=== PATIENT | female | born 1970 | race Caucasian/White ===

== ENCOUNTER 2017-03-13 10:00 | Outpatient (RCR) | payer OTHER, SELFPAY | END 2017-03-15 23:59 | LOC: NS 10:00 | PROVIDERS: Family Provider Family Medicine; PCP Family Medicine; Visit Provider Obstetrics & Gynecology | DX: Z68.29 Body mass index [BMI] 29.0-29.9, adult (principal); Z71.3 Dietary counseling and surveillance | CPT/HCPCS: 97803 ==

== ENCOUNTER → 2017-03-20 07:05 | Outpatient (CLI) | payer OTHER, SELFPAY ==
[2017-03-20 08:32] LABS: Estradiol 108.6 pg/mL; Free T3 3.1 pg/mL (2.18-3.98); T4 Free Direct 0.92 ng/dL (0.76-1.46); Thyroid Stim Hormone (TSH) 1.89 uIU/mL (0.358-3.74)
[2017-03-21 08:31] LABS: DHEA Sulfate 113.9 ug/dL (41.2-243.7)
== END ==
PROVIDERS: Family Provider Family Medicine; PCP Family Medicine; Visit Provider Specialist
DX: E03.8 Other specified hypothyroidism (principal); N95.1 Menopausal and female climacteric states; R53.81 Other malaise
CPT/HCPCS: 36415; 82627; 82670; 84144; 84403; 84439; 84443; 84481; 82626

== ENCOUNTER 2017-03-28 10:34 | Outpatient (RCR) | payer OTHER, SELFPAY | END 2017-04-12 23:59 | LOC: NS 10:34 | PROVIDERS: Family Provider Family Medicine; PCP Family Medicine; Visit Provider Obstetrics & Gynecology | DX: Z68.29 Body mass index [BMI] 29.0-29.9, adult (principal); Z71.3 Dietary counseling and surveillance | CPT/HCPCS: 97803 ==

== ENCOUNTER → 2017-04-21 15:58 | Outpatient (CLI) | payer OTHER, SELFPAY ==
[2017-04-21 17:05] LABS: Estradiol 16.4 pg/mL
== END ==
PROVIDERS: Family Provider Family Medicine; PCP Family Medicine; Visit Provider Specialist
DX: N95.8 Other specified menopausal and perimenopausal disorders (principal)
CPT/HCPCS: 36415; 82670; 84144; 84403

== ENCOUNTER → 2017-05-05 09:20 | Outpatient (CLI) | payer OTHER, SELFPAY ==
[2017-05-10 11:30] LABS: HPV APTIMA, High Risk Negative (Negative)
== END ==
PROVIDERS: Family Provider Family Medicine; PCP Family Medicine; Visit Provider Nurse Practitioner Women's Health
DX: Z12.4 Encounter for screening for malignant neoplasm of cervix (principal)
CPT/HCPCS: 88175; G0145

== ENCOUNTER → 2017-05-10 13:21 | Outpatient (CLI) | payer OTHER, SELFPAY ==
--- NOTE | 2017-05-10 13:23 | US_ITS ---
STUDY: ULTRASOUND TRANSVAGINAL CLINICAL: Female, 46 years old. MID PELVIC PAIN X 3 WEEKS INTERMITTENT SPOTTING AFTER NOT HAVING A PERIODS FOR 8 YEARS ENDO OBLATION 2009 TECHNIQUE: Transvaginal COMPARISON: None. FINDINGS: Normal uterine size measuring 8.7x5.5x4.9 cm in maximal craniocaudal dimension. There are no myometrial masses. Normal endometrial thickness measuring 7 mm. The endometrium is fluid-filled. There is an endometrial mass. Cystic structure visualized in the uterine fundus measuring 11 x 10 mm. 2 uterine fibroids visualized measuring 14 x 17 x 15 mm and 12 x 10 x 12 mm. There is an echogenic mass within the endometrium measuring 15 mm Normal uterine cervix. Normal right ovary, measuring 1.9X 2X 1.9 cm. There are multiple follicles without a dominant cyst. Normal left ovary, measuring 2.9X 3.9X 2.4 cm. There are multiple follicles with a dominant follicle that is 22 x 24mm. There is no free fluid in the pelvis. Polycystic ovary disease: No. US/Transvaginal Non- IMPRESSION: 15 mm polyp in the endometrium. Gynecologic evaluation is suggested. Fibroid uterus. Electronically Signed: Jose Burton MD at 17:28 EDT , Service support ,
--- NOTE | 2017-05-10 13:23 | US_ITS ---
STUDY: ULTRASOUND TRANSVAGINAL CLINICAL: Female, 46 years old. MID PELVIC PAIN X 3 WEEKS INTERMITTENT SPOTTING AFTER NOT HAVING A PERIODS FOR 8 YEARS ENDO OBLATION 2009 TECHNIQUE: Transvaginal COMPARISON: None. FINDINGS: Normal uterine size measuring 8.7x5.5x4.9 cm in maximal craniocaudal dimension. There are no myometrial masses. Normal endometrial thickness measuring 7 mm. The endometrium is fluid-filled. There is an endometrial mass. Cystic structure visualized in the uterine fundus measuring 11 x 10 mm. 2 uterine fibroids visualized measuring 14 x 17 x 15 mm and 12 x 10 x 12 mm. There is an echogenic mass within the endometrium measuring 15 mm Normal uterine cervix. Normal right ovary, measuring 1.9X 2X 1.9 cm. There are multiple follicles without a dominant cyst. Normal left ovary, measuring 2.9X 3.9X 2.4 cm. There are multiple follicles with a dominant follicle that is 22 x 24mm. There is no free fluid in the pelvis. Polycystic ovary disease: No. US/Pelvic (Non ) IMPRESSION: 15 mm polyp in the endometrium. Gynecologic evaluation is suggested. Fibroid uterus. Electronically Signed: Jose Burton MD at 17:28 EDT , Service support ,
== END ==
PROVIDERS: Family Provider Family Medicine; PCP Family Medicine; Visit Provider Nurse Practitioner Women's Health
DX: R10.2 Pelvic and perineal pain (principal)
CPT/HCPCS: 76830; 76856; 93976

== ENCOUNTER 2017-05-16 15:29 | Outpatient (RCR) | payer OTHER, SELFPAY | END 2017-05-16 15:30 | LOC: NS 15:29 | PROVIDERS: Family Provider Family Medicine; PCP Family Medicine; Visit Provider Obstetrics & Gynecology | DX: Z68.29 Body mass index [BMI] 29.0-29.9, adult (principal); Z71.3 Dietary counseling and surveillance | CPT/HCPCS: 97803 ==

== ENCOUNTER → 2017-05-30 07:08 | Outpatient (CLI) | payer OTHER, SELFPAY ==
--- NOTE | 2017-05-30 07:10 | BI_ITS ---
MAMMOGRAPHY - BILATERAL SCREENING REASON FOR EXAM: Female, 46 years old. Routine annual screening examination. PERTINENT HISTORY: Non-contributory. Bilateral breast implants. TECHNIQUE: Digital bilateral breast keon (3D mammographic acquisition) in the CC and MLO projections. 2-D mediolateral oblique (MLO) and craniocaudad (CC) views of both breasts were obtained. CAD: Full Field Digital Mammography with Computer Added Detection was performed. COMPARISON: Comparison is made with prior study dated May 19, 2016 and November 01, 2013. FINDINGS: Breast Composition: There are scattered areas of fibroglandular density. There are no dominant masses or suspicious calcifications. Stable appearance of the bilateral breast implants. No other significant abnormalities are identified. There has been no significant change since the prior study. BI/SCREENING MAMM (CAD), BILAT IMPRESSION: Stable bilateral screening mammogram. Yearly follow-up mammogram recommended. (A) ASSESSMENT CATEGORY: BIRADS Category 2: Benign. A letter regarding these results will be sent to the patient by the facility within 30 days. Approximately 10% of breast cancers are not detected by mammography. A normal mammogram should not delay biopsy of a clinically suspicious abnormality. [id number] Electronically Signed: Milind Moore MD at 8:57 EDT Tel [phone], Service support ,
== END ==
PROVIDERS: Family Provider Family Medicine; PCP Family Medicine; Visit Provider Nurse Practitioner Women's Health
DX: Z12.31 Encounter for screening mammogram for malignant neoplasm of breast (principal)
CPT/HCPCS: 77063; 77067

== ENCOUNTER → 2017-06-06 15:57 | Outpatient (CLI) | payer OTHER, SELFPAY ==
[2017-06-06 17:57] LABS: Mucous, Urine 0 SEEN /hpf (<or=2+)
[2017-06-06 18:33] LABS: Color, Urine Red (Yellow); Glucose, Dipstick Normal (Normal); Ketone-Dipstick Negative (Negative); Leukocyte Esterase-Dipstick 500 /ul (Negative); Nitrite-Dipstick Positive (Negative); Occult Blood-Urine 250 /ul (Negative); Protein-Dipstick 100 mg/dl (Negative); Specific Gravity, Urine 1.015 (1.002-1.030); Urine Clarity Cloudy (Clear); Urine Urobilinogen 12 mg/dl (Normal)
[2017-06-06 19:21] LABS: Urine Bilirubin Dipstick 6 mg/dL (Negative)
[2017-06-06 19:27] LABS: Bacteria 2+ /hpf (None Seen); Red Blood Cells-Urine 5-10 SEEN /hpf (0-5); Squamous Epithelial Cells - UA 5-10 SEEN /hpf (5-10); White Blood Cells >100 SEEN /hpf (0-5)
== END ==
PROVIDERS: Family Provider Family Medicine; PCP Family Medicine; Visit Provider Physician Assistant Surgical
DX: R30.0 Dysuria (principal)
CPT/HCPCS: 81001; 87077; 87086; 87088; 87186

== ENCOUNTER 2017-07-20 08:40 | Day surgery (SDC) | payer OTHER, SELFPAY ==
--- NOTE | 2017-07-14 09:02 | EKG12_ITS ---
Test Reason : PRE-OP Blood Pressure : / mmHG Vent. Rate : 062 BPM Atrial Rate : 062 BPM P-R Int : 160 ms QRS Dur : 094 ms QT Int : 398 ms P-R-T Axes : 027 008 019 degrees QTc Int : 403 ms Normal sinus rhythm Normal ECG Confirmed by CHANO LIANG [id number]), editor in chief ADELINA CAVAZOS ([id number]) on 07/24/2017 6:22:14 PM Referred By: Therese Dumont Confirmed By:CHANO LIANG
[2017-07-14 09:23] LABS: Hematocrit 45.5 % (37-47); Hemoglobin 15.7 g/dl (12.0-15.0); Mean Corp Hgb Conc 34.5 g/gl (32-36); Mean Corpuscular Hgb 30.5 pg (27.0-32.0); Mean Corpuscular Volume 88.3 fL (81-99); Mean Platelet Vol. 11.3 fl (6.2-12.0); Platelet Count 186 K/mm3 (150-450); RBC Distribution Width CV 13.1 % (11.6-14.6); Red Blood Count 5.15 M/mm3 (4.2-5.4); Scan Indicated on CBC? Y/N NO; White Blood Count 4.9 K/mm3 (4.4-11.0)
[2017-07-14 09:51] LABS: Anion Gap 6 (5-15); BUN 9 mg/dL (7-18); BUN/Creat Ratio 11.1 RATIO (10-20); Calcium,Total 8.6 mg/dL (8.5-10.1); Chloride 107 mmol/L (98-107); Creatinine, Serum 0.81 mg/dL (0.55-1.02); EST Glomerular Filtration Rate 80 mL/min (>60); Est Glom Filt Rate - Afr Amer 97 mL/min (>60); Glucose 101 mg/dL (74-106); Potassium 3.9 mmol/L (3.5-5.1); Sodium Level 140 mmol/L (136-145)
--- NOTE | 2017-07-20 | HYST_PTH ---
PATIENT: HELEN BURGOS LOC: [facility] U#:[id number] AGE/SX: 46/F ROOM: RE07/20/[address]: Dr. Therese Dumont MD : 1970 BED: DIS: 07/21/2017 SPEC #: [id number] RECD: 07/20/17 15:09 STATUS: RASHEEDA MARQUISE #: [id number] JOSH: 07/20/17 00:[address]: Therese Dumont DEPT: SURGICAL PATHOLOGY RECD BY: Gabriele Osorio ENTERED: 07/21/17 04:33 SP TYPE: HYSTERECT OTHR DR: Dr. Audi Louis MD Tissues: Uterus, NOS Procedures: Surgery Specimen Level V HEADER OPERATION: Laparoscopic assisted vaginal hysterectomy, bilateral salpingectomy, cystoscopy PRE-OP DIAGNOSIS: Abnormal uterine bleeding TISSUE SUBMITTED: Uterus, cervix, bilateral fallopian tubes MICROSCOPIC DIAGNOSIS Uterus, cervix and bilateral fallopian tubes, vaginal hysterectomy and bilateral salpingectomy: Cervix ? chronic cystic cervicitis with tunnel cluster formation. Endometrium ? extensive fibrosis consistent with previous endometrial ablation. - Focal area of inactive endometrium. Myometrium - no pathologic diagnosis. Bilateral fallopian tubes ? focal hematosalpinx, status post tubal ligation. SJ:michelet 07/24/17 MICROSCOPIC DESCRIPTION Slides are reviewed. GROSS DESCRIPTION Received in fixative is one container labeled with the patient's name and designated uterus, cervix, bilateral fallopian tubes. The specimen consists of a hysterectomy specimen consisting of a uterus with cervix and attached bilateral fallopian tubes. The uterus with cervix weighs 93 gm and measures 8 x 6 x 4.5 cm. The serosal surface is colmenares, glistening. The ectocervical mucosa is unremarkable. The external os is oval in contour. The endocervical canal measures 2.5 cm in length and the endocervical mucosa is unremarkable. The endometrial cavity is narrow and obliterated in the proximal portion and measures 2.5 cm in length and 0.5 cm in width. The endometrium is colmenares, glistening and measures 0.1 cm in thickness. Sections of the uterine wall do not reveal any mass lesion and it measures up to 2 cm in thickness. The right fallopian tube measures 5.5 cm in length and 0.7 to 1.5 cm in diameter. The fimbrial end is identified. It is interrupted in the middle consistent with previous tubal occlusion. The fallopian tube proximal to the site of occlusion is filled with blood clots. The left fallopian tube measures 5 cm in length and up to 0.5 cm in diameter. The fimbrial end is identified. It is also interrupted in the middle consistent with previous tubal occlusion. Sections do not reveal any mass lesion. [employer] sections are submitted in nine cassettes as follows: 1 - anterior cervix, 2 - posterior cervix, 3 & 4 - anterior uterine wall, 5 & 6 - posterior uterine wall, 7 & 8 ? right fallopian tube, 9 ? left fallopian tube. / HEIDY:michelet 07/21/17 TC:5 CPT: 39741
--- NOTE | 2017-07-20 08:40 | DT_ITS ---
This patient was seen during an EMR downtime July 17, 2017 - July 24, 2017. This patient may have a combination of paper and electronic documentation or all paper documentation. All documentation is viewable within the e-chart portion of [employer] for each patient visit.
[2017-07-24 11:35] LABS: Hematocrit 42.3 % (37-47); Mean Corp Hgb Conc 33.1 g/gl (32-36); Mean Corpuscular Hgb 29.9 pg (27.0-32.0); Mean Corpuscular Volume 90.4 fL (81-99); RBC Distribution Width CV 13.1 % (11.6-14.6); RBC Distribution Width SD 42.5 fl (35.1-43.9); Red Blood Count 4.68 M/mm3 (4.2-5.4); White Blood Count 11.9 K/mm3 (4.4-11.0)
[2017-07-24 11:36] LABS: Mean Platelet Vol. 11.9 fl (6.2-12.0); Platelet Count 183 K/mm3 (150-450); Scan Indicated on CBC? Y/N NO
[2017-07-25 01:47] LABS: Internal QC Validated? YES +Cl - CLEAR BKGD; Pregnancy, Urine Negative Negative
== END 2017-07-21 10:10 | disposition home or self-care (01) ==
LOC: SDC 08-02 07:52 → MS3 08-02 07:52
PROVIDERS: Family Provider Family Medicine; PCP Family Medicine; Visit Provider Obstetrics & Gynecology
PROC: 0UT9FZZ Resection of Uterus, Via Natural or Artificial Opening With Percutaneous Endoscopic Assistance (ICD-10-PCS; CPT 52000; principal; 2017-07-20 12:20)
DX: N72 Inflammatory disease of cervix uteri (principal); N83.6 Hematosalpinx; N93.9 Abnormal uterine and vaginal bleeding, unspecified; F41.9 Anxiety disorder, unspecified; G47.30 Sleep apnea, unspecified; K21.9 Gastro-esophageal reflux disease without esophagitis; Z98.51 Tubal ligation status
CPT/HCPCS: 52000; 58552; 36415; 80048; 81025; 85027; 86850; 86900; 88307; 93005; J7120; A4216

== ENCOUNTER → 2017-08-08 17:19 | Outpatient (CLI) | payer OTHER, SELFPAY | PROVIDERS: Family Provider Family Medicine; PCP Family Medicine; Visit Provider Obstetrics & Gynecology | DX: R30.0 Dysuria (principal) | CPT/HCPCS: 87086; 87088 ==

== ENCOUNTER → 2017-08-29 16:27 | Outpatient (CLI) | payer OTHER, SELFPAY | PROVIDERS: Family Provider Family Medicine; PCP Family Medicine; Visit Provider Obstetrics & Gynecology | DX: N89.8 Other specified noninflammatory disorders of vagina (principal) | CPT/HCPCS: 87070; 87086; 87205 ==

== ENCOUNTER → 2017-08-29 18:18 | Outpatient (CLI) | payer OTHER, SELFPAY | PROVIDERS: Family Provider Family Medicine; Visit Provider Obstetrics & Gynecology | DX: N89.8 Other specified noninflammatory disorders of vagina (principal) | CPT/HCPCS: 87086 ==

== ENCOUNTER 2017-12-27 10:45 | Outpatient (RCR) | payer OTHER, SELFPAY ==
--- NOTE | 2017-05-24 12:51 | MASS.EVAL ---
Massage Therapy Evaluation: Initial Evaluation Date: 05/23/17 SUBJECTIVE: Em is a 46 year old female who is employed at [employer]. She was referred to the [facility] facility for a massotherapy evaluation by Dr Audi Louis with the diagnosis of headaches. Em presents today with the symptoms of headache pain and tension in her neck upper and lower back. She reports having a history of scoliosis with no limitations in her daily activities. OBJECTIVE: Upon observation Em has poor posture with her head forward and shoulders forward from the neutral position in sitting and standing. After examination and palpation I found Em to have very high muscle tension in her scalenes, trapezius, rhomboids, and sub occipitals with restrictions in cervical ROM. Her hips and lumbar muscles were also very tight with tender points in her lumbar paraspinals and glutes. The first treatment consisted of a 45 minute deep tissue massage to her full body with myofascial release and trigger point compression techniques. ASSESSMENT: I feel that Em is a good candidate for massotherapy at this time. She had a favorable response to the first treatment with reduction in her headache pain and decreases in her neck and low back pain and tension. She also had improvement in her cervical and lumbar range of motion. PLAN: The plan of care was reviewed with the patient. The patient is to be seen on as needed basis for a total of ten sessions with the recommendation of once every four weeks for a one hour treatment. Macarena Walsh LMT
--- NOTE | 2017-05-24 12:55 | MASS.EVAL_ITS ---
Massage Therapy Evaluation: Initial Evaluation Date: 05/23/17 SUBJECTIVE: Em is a 46 year old female who is employed at [employer]. She was referred to the [facility] facility for a massotherapy evaluation by Dr Audi Louis with the diagnosis of headaches. Em presents today with the symptoms of headache pain and tension in her neck upper and lower back. She reports having a history of scoliosis with no limitations in her daily activities. OBJECTIVE: Upon observation Em has poor posture with her head forward and shoulders forward from the neutral position in sitting and standing. After examination and palpation I found Em to have very high muscle tension in her scalenes, trapezius, rhomboids, and sub occipitals with restrictions in cervical ROM. Her hips and lumbar muscles were also very tight with tender points in her lumbar paraspinals and glutes. The first treatment consisted of a 45 minute deep tissue massage to her full body with myofascial release and trigger point compression techniques. ASSESSMENT: I feel that Em is a good candidate for massotherapy at this time. She had a favorable response to the first treatment with reduction in her headache pain and decreases in her neck and low back pain and tension. She also had improvement in her cervical and lumbar range of motion. PLAN: The plan of care was reviewed with the patient. The patient is to be seen on as needed basis for a total of ten sessions with the recommendation of once every four weeks for a one hour treatment. Macarena Walsh LMT
--- NOTE | 2018-02-03 15:00 | DS.PCM_ITS ---
Massage Therapy Discharge Summary: Discharge Date: 02/03/2018 Em was seen for a massotherapy evaluation on 05/23/2017 with the diagnosis of headaches. She was treated with five sessions of massage therapy consisting of deep pressure soft tissue techniques, myofascial release and trigger point compression to her cervical, thoracic, lower back, upper extremities and hips. Em responded well to the therapy by reporting decreased tension and pain throughout her head, neck, shoulders, lower back and hips. Her goals for therapy were met throughout the treatment sessions. At this time this patient is being discharged from our care at [facility] facility.
== END 2017-12-27 19:00 | disposition home or self-care (01) ==
LOC: MASS 10:45
PROVIDERS: Family Provider Family Medicine; PCP Family Medicine; Visit Provider Family Medicine
DX: M79.1 Myalgia (principal)
CPT/HCPCS: 97124

== ENCOUNTER → 2018-08-21 | Outpatient (CLI) | payer OTHER, SELFPAY ==
--- NOTE | 2018-08-21 12:01 | BI_ITS ---
MAMMOGRAPHY - BILATERAL SCREENING REASON FOR EXAM: Female, 48 years old. Routine annual screening examination. PERTINENT HISTORY: Non-contributory. Bilateral breast implants. TECHNIQUE: Digital bilateral breast ralph (3D mammographic acquisition) in the CC and MLO projections. 2-D mediolateral oblique (MLO) and craniocaudad (CC) views of both breasts were obtained. CAD: Full Field Digital Mammography with Computer Added Detection was performed. COMPARISON: Comparison is made with prior study dated May 30, 2017 and May 19, 2016. FINDINGS: Breast Composition: There are scattered areas of fibroglandular density. There are no dominant masses or suspicious calcifications. Stable appearance of the bilateral breast implants. No other significant abnormalities are identified. There has been no significant change since the prior study. BI/SCREEN MAMM (CAD) W/RALPH BILAT IMPRESSION: Stable bilateral screening mammogram. Yearly follow-up mammogram recommended. (A) ASSESSMENT CATEGORY: BIRADS Category 2: Benign. A letter regarding these results will be sent to the patient by the facility within 30 days. Approximately 10% of breast cancers are not detected by mammography. A normal mammogram should not delay biopsy of a clinically suspicious abnormality. [id number] Electronically Signed: Milind Moore, at 14:55 EDT , Service support ,
== END | disposition home or self-care (01) ==
PROVIDERS: Family Provider Family Medicine; PCP Family Medicine; Referring Provider Obstetrics & Gynecology; Visit Provider Obstetrics & Gynecology
DX: Z12.31 Encounter for screening mammogram for malignant neoplasm of breast (principal)
CPT/HCPCS: 77063; 77067

== ENCOUNTER → 2018-11-16 | Outpatient (CLI) | payer OTHER, SELFPAY ==
[2018-11-16 07:43] LABS: Anion Gap 5 (5-15); BUN 18 mg/dL (7-18); BUN/Creat Ratio 17.8 RATIO (10-20); Calcium,Total 9.2 mg/dL (8.5-10.1); Chloride 106 mmol/L (98-107); Cholesterol 233 mg/dL (200); Creatinine, Serum 1.01 mg/dL (0.55-1.02); EST Glomerular Filtration Rate 62 mL/min (>60); Est Glom Filt Rate - Afr Amer 75 mL/min (>60); Glucose 107 mg/dL (74-106); High Density Lipoprotein 46 mg/dL; Potassium 3.5 mmol/L (3.5-5.1); Sodium Level 139 mmol/L (136-145); Thyroid Stim Hormone (TSH) 2.52 uIU/mL (0.358-3.74); Triglycerides 56 mg/dL; Very Low Density Lipoprotein 11 mg/dL (5-40)
[2018-11-16 08:29] LABS: Vitamin D,25 Hydroxy 23.5 ng/mL (29.95-100.01)
== END | disposition home or self-care (01) ==
LOC: LAB 06:59
PROVIDERS: Family Provider Family Medicine; PCP Family Medicine; Referring Provider Family Medicine; Visit Provider Family Medicine
DX: Z00.00 Encounter for general adult medical examination without abnormal findings (principal)
CPT/HCPCS: 36415; 80048; 80061; 82306; 84443

== ENCOUNTER → 2018-12-05 | Outpatient (CLI) | payer OTHER, SELFPAY | END | disposition home or self-care (01) | LOC: SL 20:26 | PROVIDERS: Family Provider Family Medicine; PCP Family Medicine; Referring Provider Family Medicine; Visit Provider Family Medicine | DX: G47.33 Obstructive sleep apnea (adult) (pediatric) (principal) | CPT/HCPCS: 95811 ==

== ENCOUNTER 2019-02-11 07:47 | Day surgery (SDC) | payer OTHER, SELFPAY ==
[2019-02-11] VITALS (7 sets, daily range): BP systolic 100–125; BP diastolic 64–82; PULSE 70–78; RESP 16; TEMP 36.3–36.4; O2SAT 97–100; BMI 29.4
[2019-02-11] MEDS: Lactated Ringers 1,000 ML 100 ML IV (08:23)
--- NOTE | 2019-02-11 08:45 | COLBX_PTH ---
PATIENT: HELEN BURGOS LOC: [place] U#:[id number] AGE/SX: 48/F ROOM: RE02/11/[address]: Dr. Fanny Knott MD : 1970 BED: DIS: 02/11/2019 SPEC #: [id number] RECD: 02/11/19 10:36 STATUS: RASHEEDA MARQUISE #: [id number] JOSH: 02/11/19 08:[address]: Fanny Knott DEPT: SURGICAL PATHOLOGY RECD BY: Edgar Guzman ENTERED: 02/11/19 11:18 SP TYPE: COLON BX OTHR DR: Dr. Audi Louis MD Tissues: A - POLYP B - POLYP C - Sigmoid colon biopsy Procedures: Surgery Specimen Level IV HEADER OPERATION: Colonoscopy - open access (MAC) PRE-OP DIAGNOSIS: Screening TISSUE SUBMITTED: A. Near appendiceal orifice polyp base biopsy, B. Near appendical orifice polyp, C. Distal sigmoid at 25 cm polyp MICROSCOPIC DIAGNOSIS A. Near appendiceal orifice polyp base, biopsy: No significant pathologic change. B. Near appendiceal orifice polyp, biopsy: Benign fibrolipomatous polyp. See comment. C. Distal sigmoid colon polyp at 25 cm, biopsy: Fragments of tubular adenoma. Fecal debris. AM:michelet 02/12/19 COMMENT B. Neither hyperplastic nor adenomatous change is seen. Clinical correlation is suggested. MICROSCOPIC DESCRIPTION Slides are reviewed. GROSS DESCRIPTION A - Received in fixative is one container labeled with the patient's name and designated near appendiceal orifice. The specimen consists of multiple irregular fragments of light colmenares soft tissue that in aggregate measure 0.6 x 0.3 x 0.1 cm. The specimen is totally submitted in one cassette. B - Received in fixative is one container labeled with the patient's name and designated polyp near appendiceal orifice. The specimen consists of a colmenares polyp measuring 1 x 1 x 0.8 cm. The presumed base is inked. The specimen is trisected and totally submitted in one cassette. C - Received in fixative is one container labeled with the patient's name and designated distal sigmoid at 25 cm. The specimen consists of multiple irregular fragments of light colmenares soft tissue that in aggregate measure 2.5 x 1.5 x 0.3 cm. The specimen is totally submitted in one cassette. / AM:michelet 02/11/19 TC:5 CPT: 83682 x3
--- NOTE | 2019-02-11 08:46 | HP.PCM_ITS ---
History of Present Illness Date of Admission: 02/11/19 The patient is a 48 year old F presents for screening colonoscopy. Patient has bowel movements about every other day. Denies any blood. Patient is never had a previous colonoscopy. Denies any family history of colon cancer. Has any chronic abdominal pain/nausea/vomiting/reflux. Past Medical/Surgical History - Planned Operation Planned Operative Procedure/s: COLONOSCOPY Date of Operative Procedure: 01/30/19 Permit Signed: Yes S.O.S: No Is This Patient Having a Total Joint: No - Previous Hospitalizations/Surgeries HX Hospitalizations: No HX of Surgeries: EYE SURGERY X2. APPENDECTOMY. CSECTION. GALLBLADDER. LAPAROSCOPY. TONSILLECTOMY. BREAST AUGMENTATION. HYSTERECTOMY 07/2017 Any Problems With Anesthesia: Yes - NAUSEA VOMITING You/Your Family Experience Fever (Hyperthermia) With Anes: No Cholinesterase deficiency: No - Cardiovascular Hx Chest Pain within Last 2 months: No Hx of Irregular Heartbeat and/or Afib: No Hx Heart Attack: No Hx Congestive Heart Failure: No Hx Rheumatic Fever: No Hx Hypertension: No Hx Internal Defibrillator: No Hx Pacemaker: No Hx Cardiac Catheterization: No Hx Cardiac Surgery/Stents/Etc.: No Hx Stress Test: No Hx Pain in Legs when Walking/Leg Cramps: No - Respiratory Chronic Cough: No HX of Shortness of Breath: No Hoarseness: No Hx Chronic Obstructive Pulmonary Disease (COPD): No Hx Asthma: No Hx Emphysema: No Hx Sleep Apnea: Yes CPAP: Yes - DOESNT WEAR MACHINE BIPAP: No Hx Respiratory Tract Infection/Cold (presently): No Result (for STOP score): Positive Hx Smoking: No Smoking Status: Never smoker - Gastrointestinal Hx Gastroesophageal Reflux: Yes - no Dx Controlled With Meds: Yes Hx Gastrointestinal Disorders: Yes - IBS Hx Gastrointestinal Bleed: No Hx Ulcer: No Hx Hiatal Hernia: No Difficulty Chewing/Swallowing: No Recent Onset of Swallowing Problems: No Special diet followed at home: No Hx Unplanned Weight Loss of 20#: No HX Unplanned Weight Gain of 20#: No - Neurological Hx Seizures: No HX Syncope/Blackout Spells/Unconsciousness: No Hx CVA/Stroke: No Hx Transient Ischemic Attacks (TIA): No Hx Multiple Sclerosis: No Hx Parkinson's Disease: No Hx Head/Neck Injury: No Hx Headaches: No Hx Back Injury/Pain: No Recent Onset of Speech Difficulty: No Restless Legs: Yes Does patient have nerve stimulator: No - Blood Disorder Hx Leukemia: No Bleeding Tendencies: No Hx Deep Vein Thrombosis: No Hx High Cholesterol: No Blood Transmitted Disease: No Hx Hepatitis: No Hx Cirrhosis: No Hx Anemia: No Hx Blood Disorders: No - Reproduction : No Is Patient Lactating: No Hx Hysterectomy: Yes Hx Tubal Ligation: No Are You Post Menopause: Yes - Genitourinary Hx Renal Disease: No - FREQ BLADDER INFECTIONS - Musculoskeletal Hx Arthritis: No Hx Rheumatoid Arthritis: No Hx Gout: No Recent Onset of an Orthopedic Problem: No - Endocrine Hx Diabetes: No Thyroid Disease: No Hx Steroid Therapy: No - Psycho/Social Hx Substance Use: No Hx Alcohol Use: No Hx Anxiety: Yes Hx Depression: Yes Mental Illness: No Hx Dementia: No - Miscellaneous Hx Cancer: No Recent Exposure to Contagious Disease: No Active MRSA: No Hx of C-Diff: No Any Loose Teeth: No Allergies codeine Adverse Reaction (Verified 02/11/19 08:05) Vomiting - Discharge Is Pt Admitted From a Longterm, or a Retirement: No Who Could Help: After D/C, Where Do you Plan to Go: Return Home - Physical Exam Vitals/I&O's: Vital Signs Temp Pulse Resp BP Pulse Ox 97.5 F L 77 16 125/76 H 97 02/11/19 08:07 02/11/19 08:07 02/11/19 08:07 02/11/19 08:07 02/11/19 08:07 Oxygen Delivery Method Room Air Weight: 187 lb 13.341 oz Body Mass Index (BMI) 29.4 General: Alert, Oriented x3, Cooperative, No apparent distress HEENT: Atraumatic Lungs: Normal air movement Cardiovascular: Regular rate Abdomen: Soft, Non Tender, Non-Distended Extremities: No clubbing, No cyanosis, No edema Neurological: Cranial nerves II-XII grossly intact Psych/Mental Status: Normal Affect Current Medications Lactated Ringer's () 1,000 mls @ 100 mls/hr IV .Q10H CHET Last Admin: 02/11/19 08:23 Dose: 100 mls/hr Documented by: Assessment/Plan All Active Problems (Last Reviewed 08/29/17 @ 10:02 by Saranya Lozano) Urinary tract infection (Acute) 48 year-old female for screening for colon cancer Surgery Risks - Colonoscopy I discussed with the patient the risks of the procedure: Yes Risks Include but are not Limited To: Risks include but are not limited to: Bleeding, perforation requiring further surgery, inability to complete colonoscopy requiring barium enema. Patient no further questions this time.
--- NOTE | 2019-02-11 10:06 | OP.COLON_ITS ---
Patient Name: Em White Procedure Date: 02/11/2019 8:49 AM Date of : 1970 Age: 48 Procedure: Colonoscopy Indications: Screening for colorectal malignant neoplasm Providers: Fanny Knott MD Referring MD: Audi Louis MD Medicines: Monitored Anesthesia Care Patient Profile: This is a 48 year old female. Last Colonoscopy: none. The patient's first colonoscopy is today. Complications: No immediate complications. Procedure: Pre-Anesthesia Assessment: - Prior to the procedure, a History and Physical was performed, and patient medications and allergies were reviewed. The patient's tolerance of previous anesthesia was also reviewed. The risks and benefits of the procedure and the sedation options and risks were discussed with the patient. All questions were answered, and informed consent was obtained. Prior Anticoagulants: The patient has taken no previous anticoagulant or antiplatelet agents. ASA Grade Assessment: II - A patient with mild systemic disease. After reviewing the risks and benefits, the patient was deemed in satisfactory condition to undergo the procedure. After I obtained informed consent, the scope was passed under direct vision. Throughout the procedure, the patient's blood pressure, pulse, and oxygen saturations were monitored continuously. The Colonoscope was introduced through the anus and advanced to the cecum, identified by the ileocecal valve. The colonoscopy was technically difficult and complex due to a tortuous colon. The patient tolerated the procedure well. The quality of the bowel preparation was adequate to identify polyps. Scope In: 9:00:10 AM Scope Withdrawal Time 0 hours 48 minutes 44 seconds Scope Out: 9:58:06 AM Total Procedure Duration Time 0 hours 57 minutes 56 seconds Findings: Hemorrhoids were found on perianal exam. A 11 mm polyp was found in the appendiceal orifice. The polyp was semi-pedunculated. The polyp was removed with a cold biopsy forceps. The polyp was removed with a piecemeal technique using a cold biopsy forceps. The polyp was removed with a piecemeal technique using a hot snare. Resection and retrieval were complete. Biopsies were taken with a cold forceps for histology. Biopsies were taken with a cold forceps for histology. A 9 mm polyp was found in the sigmoid colon. The polyp was pedunculated. The polyp was removed with a hot snare and The polyp was removed with a piecemeal technique using a hot snare. Resection and retrieval were complete. [Clip Device]. Biopsies were taken with a cold forceps for histology. Internal hemorrhoids were found during retroflexion. The hemorrhoids were Grade I (internal hemorrhoids that do not prolapse). Impression: - Hemorrhoids found on perianal exam. - One 11 mm polyp at the appendiceal orifice, removed with a cold biopsy forceps, removed piecemeal using a cold biopsy forceps and removed piecemeal using a hot snare. Resected and retrieved. Biopsied. - One 9 mm polyp in the sigmoid colon, removed with a hot snare and removed piecemeal using a hot snare. Resected and retrieved. Biopsied. - Internal hemorrhoids. Recommendation: - Repeat colonoscopy in 6-12 months for surveillance based on pathology results. - Discharge patient to home. - Resume previous diet. - Continue present medications. - Await pathology results. Procedure Code(s): --- Professional --- 35261, PT, Colonoscopy, flexible; with removal of tumor(s), polyp(s), or other lesion(s) by snare technique Diagnosis Code(s): --- Professional --- Z12.11, Encounter for screening for malignant neoplasm of colon K64.0, First degree hemorrhoids D12.1, Benign neoplasm of appendix D12.5, Benign neoplasm of sigmoid colon CPT copyright 2017 [employer]. All rights reserved. The codes documented in this report are preliminary and upon hospital coder review may be revised to meet current compliance requirements. MD Fanny Siddiqui MD 02/11/2019 10:06:14 AM This report has been signed electronically. Number of Addenda: 0 Note Initiated On: 02/11/2019 8:49 AM
== END 2019-02-11 11:39 | disposition home or self-care (01) ==
LOC: EN 07:48 → AC 07:49
PROVIDERS: Family Provider Family Medicine; PCP Family Medicine; Referring Provider Family Medicine; Visit Provider Surgery
PROC: 0DJD8ZZ Inspection of Lower Intestinal Tract, Via Natural or Artificial Opening Endoscopic (ICD-10-PCS; CPT 45378; principal; 2019-02-11 08:40)
DX: Z12.11 Encounter for screening for malignant neoplasm of colon (principal); D12.5 Benign neoplasm of sigmoid colon; D12.2 Benign neoplasm of ascending colon; K64.0 First degree hemorrhoids; K21.9 Gastro-esophageal reflux disease without esophagitis; G47.30 Sleep apnea, unspecified; F41.9 Anxiety disorder, unspecified; F32.9 Major depressive disorder, single episode, unspecified; Z79.899 Other long term (current) drug therapy; Z87.440 Personal history of urinary (tract) infections
CPT/HCPCS: 45380; 88305; J7120; J1610

== ENCOUNTER 2020-04-08 07:06 | Day surgery (SDC) | payer OTHER, SELFPAY ==
[2019-02-11 08:07] VITALS: BMI 29.4
[2020-04-08] VITALS (7 sets, daily range): BP systolic 109–134; BP diastolic 67–87; PULSE 59–78; RESP 16–18; TEMP 36.6–37.1; O2SAT 95–96; BMI 30.2
[2020-04-08] MEDS: Lactated Ringers 1,000 ML 100 ML IV (07:49)
--- NOTE | 2020-04-08 07:50 | H&P.OPEN ---
History of Present Illness Date of Admission: 04/08/20 The patient is a 49 year old F presents due to history of colon polyps. Last scope was in January 2019 she did have a piecemeal removal of a polyp near her appendix which was at fibrolipomatous polyp as well as a tubular adenoma in the colon. Patient states she has bowel moods about 3 times a week. Patient denies any chronic abdominal pain/nausea/vomiting/reflux. Patient denies any family history of colon cancer. Past Medical/Surgical History - Planned Operation Planned Operative Procedure/s: COLONOSCOPY Date of Operative Procedure: 02/26/20 Permit Signed: Yes S.O.S: No Is This Patient Having a Total Joint: No - Previous Hospitalizations/Surgeries HX Hospitalizations: No HX of Surgeries: EYE SURGERY X2. APPENDECTOMY. CSECTION. GALLBLADDER. LAPAROSCOPY. TONSILLECTOMY. BREAST AUGMENTATION. HYSTERECTOMY 07/2017. COLONOSCOPY 02/11/19 Any Problems With Anesthesia: Yes - NAUSEA, VOMITING You/Your Family Experience Fever (Hyperthermia) With Anes: No Cholinesterase deficiency: No - Cardiovascular Hx Chest Pain within Last 2 months: No Hx of Irregular Heartbeat and/or Afib: No Hx Heart Attack: No Hx Congestive Heart Failure: No Hx Rheumatic Fever: No Hx Hypertension: No Hx Internal Defibrillator: No Hx Pacemaker: No Hx Cardiac Catheterization: No Hx Cardiac Surgery/Stents/Etc.: No Hx Stress Test: No HX Edema: No Hx Pain in Legs when Walking/Leg Cramps: No - Respiratory Chronic Cough: No HX of Shortness of Breath: No Hoarseness: No Hx Chronic Obstructive Pulmonary Disease (COPD): No Hx Asthma: No Hx Emphysema: No Hx Sleep Apnea: Yes CPAP: Yes - DOESNT WEAR MACHINE BIPAP: No Hx Oxygen Use at Home: No Hx Respiratory Tract Infection/Cold (presently): No Result (for STOP score): Positive Hx Smoking: No Smoking Status: Never smoker - Gastrointestinal Hx Gastroesophageal Reflux: Yes - no Dx Controlled With Meds: Yes Hx Gastrointestinal Disorders: Yes - IBS Hx Gastrointestinal Bleed: No Hx Ulcer: No Hx Hiatal Hernia: No Difficulty Chewing/Swallowing: No Recent Onset of Swallowing Problems: No Special diet followed at home: No Hx Unplanned Weight Loss of 20#: No HX Unplanned Weight Gain of 20#: No - Neurological Hx Seizures: No HX Syncope/Blackout Spells/Unconsciousness: No Hx CVA/Stroke: No Hx Transient Ischemic Attacks (TIA): No Hx Multiple Sclerosis: No Hx Parkinson's Disease: No Hx Head/Neck Injury: No Hx Headaches: No Hx Back Injury/Pain: No Recent Onset of Speech Difficulty: No Restless Legs: Yes Does patient have nerve stimulator: No - Blood Disorder Hx Leukemia: No Bleeding Tendencies: No Hx Deep Vein Thrombosis: No Hx High Cholesterol: No Blood Transmitted Disease: No Hx Hepatitis: No Hx Cirrhosis: No Hx Anemia: No Hx Blood Disorders: No - Reproduction Is Patient Lactating: No Hx Hysterectomy: Yes Hx Tubal Ligation: No Are You Post Menopause: Yes - Genitourinary Hx Renal Disease: No - FREQ BLADDER INFECTIONS - Musculoskeletal Hx Arthritis: No Hx Rheumatoid Arthritis: No Hx Gout: No Recent Onset of an Orthopedic Problem: No - Endocrine Hx Diabetes: No Thyroid Disease: No Hx Steroid Therapy: No - Psycho/Social Hx Substance Use: No Hx Alcohol Use: No Hx Anxiety: Yes Hx Depression: Yes Mental Illness: No Hx Dementia: No - Miscellaneous Hx Cancer: No Recent Exposure to Contagious Disease: No Active MRSA: No Hx of C-Diff: No Any Loose Teeth: No Allergies codeine Adverse Reaction (Verified 04/08/20 07:24) Vomiting - Discharge Is Pt Admitted From a Group Home, or a Residential: No Who Could Help: After D/C, Where Do you Plan to Go: Return Home - Physical Exam Vitals/I&O's: Vital Signs Temp Pulse Resp BP Pulse Ox 98.7 F 67 16 134/82 H 96 04/08/20 07:25 04/08/20 07:25 04/08/20 07:25 04/08/20 07:25 04/08/20 07:25 Oxygen Delivery Method Room Air Weight: 193 lb 5.526 oz Body Mass Index (BMI) 30.2 General: Alert, Oriented x3, Cooperative, No apparent distress Lungs: Normal air movement Cardiovascular: Regular rate Abdomen: Soft, Non Tender, Non-Distended Extremities: No clubbing, No cyanosis, No edema Neurological: Cranial nerves II-XII grossly intact Psych/Mental Status: Normal Affect Microbiology Past 72 Hours 04/07/20 12:25 Interface Orders SARS-CoV-2 Antigen (Rapid) - Final Current Medications Lactated Ringer's () 1,000 mls @ 100 mls/hr IV .Q10H CHET Last Admin: 04/08/20 07:49 Dose: 100 mls/hr Documented by: Assessment/Plan All Active Problems (Last Reviewed 08/29/17 @ 10:02 by Saranya Lozano) Urinary tract infection (Acute) 49-year-old female with history of colon polyps Procedure Criteria Procedure Type: Elective COVID Risk Discussion: The surgeon/proceduralist and patient have discussed in detail the risk of exposure to and/or potential harm posed by the COVID-19 virus with having a surgery/procedure at this time versus the risk of delaying the surgery/procedure. It is not possible to know either the risk of delaying the surgery or procedure or chance of getting an infection with perfect accuracy, but a joint decision was made between the patient and the surgeon/proceduralist to proceed at this time with the scheduled surgery/procedure as indicated on the consent form. Surgery Risks - Colonoscopy I discussed with the patient the risks of the procedure: Yes Risks Include but are not Limited To: Risks include but are not limited to: Bleeding, perforation requiring further surgery, inability to complete colonoscopy requiring barium enema.
--- NOTE | 2020-04-08 08:00 | COLBX_PTH ---
PATIENT: HELEN BURGOS LOC: EN U#:[id number] AGE/SX: 49/F ROOM: RE04/08/[address]: Dr. Fanny Knott MD : 1970 BED: DIS: 04/08/2020 SPEC #: [id number] RECD: 04/08/20 11:04 STATUS: RASHEEDA MARQUISE #: [id number] JOSH: 04/08/20 08:[address]: Fanny Knott DEPT: SURGICAL PATHOLOGY RECD BY: Nena Doshi ENTERED: 04/08/20 11:40 SP TYPE: COLON BX OTHR DR: Dr. Audi Louis MD Tissues: A - Ascending colon B - Descending colon Procedures: Surgery Specimen Level IV HEADER OPERATION: Colonoscopy (MAC) PRE-OP DIAGNOSIS: History of colon polyps TISSUE SUBMITTED: A - Ascending colon biopsy, B - Descending colon biopsy MICROSCOPIC DIAGNOSIS A. Ascending colon, biopsy: Fragments of tubular adenoma. B. Descending colon, biopsy: Fragments of tubular adenoma. HEIDY:michelet 04/09/2020 MICROSCOPIC DESCRIPTION Slides are reviewed. GROSS DESCRIPTION A - Received in fixative is one container labeled with the patient's name and designated ascending colon biopsy. The specimen consists of multiple irregular fragments of light colmenares soft tissue that in aggregate measure 1.5 x 0.3 x 0.1 cm. The specimen is totally submitted in one cassette. B - Received in fixative is one container labeled with the patient's name and designated descending colon biopsy. The specimen consists of two irregular fragments of light colmenares soft tissue that in aggregate measure 0.8 x 0.3 x 0.1 cm. The specimen is totally submitted in one cassette. / HEIDY:michelet 04/08/20 TC:1 CPT: 21064 x2
--- NOTE | 2020-04-08 10:59 | OP.CCLET_ITS ---
04/08/2020 Audi Louis MD [address] [id number] Re : Colonoscopy procedure for Em White Dear Dr. Louis This procedure was performed on Wednesday, April 08, 2020. My impressions and recommendations are as follows: Impressions : - Two less than 5 mm polyps in the descending colon and in the ascending colon, removed with a cold biopsy forceps. Resected and retrieved. - The examination was otherwise normal on direct and retroflexion views. Recommendations : - Discharge patient to home. - High fiber diet. - Continue present medications. - Await pathology results. - Repeat colonoscopy in 3 - 5 years for surveillance based on pathology results. My findings are described in the full procedure note, which is enclosed. If I can be of further assistance, please feel free to contact me at Doctor phone number(s): , Work: . Sincerely, MD Fanny Siddiqui MD 04/08/2020 8:44:17 AM This report has been signed electronically.
--- NOTE | 2020-04-08 10:59 | OP.COLON_ITS ---
Patient Name: Em White Procedure Date: 04/08/2020 7:30 AM Date of : 1970 Age: 49 Procedure: Colonoscopy Indications: High risk colon cancer surveillance: Personal history of colonic polyps Providers: Fanny Knott MD Referring MD: Audi Louis MD Medicines: Monitored Anesthesia Care Patient Profile: This is a 49 year old female. Last Colonoscopy: January 2019. Complications: No immediate complications. Procedure: Pre-Anesthesia Assessment: - Prior to the procedure, a History and Physical was performed, and patient medications and allergies were reviewed. The patient's tolerance of previous anesthesia was also reviewed. The risks and benefits of the procedure and the sedation options and risks were discussed with the patient. All questions were answered, and informed consent was obtained. Prior Anticoagulants: The patient has taken no previous anticoagulant or antiplatelet agents. ASA Grade Assessment: Per anesthesia. After reviewing the risks and benefits, the patient was deemed in satisfactory condition to undergo the procedure. After I obtained informed consent, the scope was passed under direct vision. Throughout the procedure, the patient's blood pressure, pulse, and oxygen saturations were monitored continuously. The Colonoscope was introduced through the anus and advanced to the cecum, identified by the appendiceal orifice, ileocecal valve and palpation. The colonoscopy was performed without difficulty. The patient tolerated the procedure well. The quality of the bowel preparation was good. Scope In: 7:58:47 AM Scope Withdrawal Time 0 hours 22 minutes 58 seconds Scope Out: 8:32:00 AM Total Procedure Duration Time 0 hours 33 minutes 13 seconds Findings: The perianal and digital rectal examinations were normal. Two sessile polyps were found in the descending colon and ascending colon. The polyps were less than 5 mm in size. These polyps were removed with a cold biopsy forceps. Resection and retrieval were complete. The exam was otherwise without abnormality on direct and retroflexion views. Impression: - Two less than 5 mm polyps in the descending colon and in the ascending colon, removed with a cold biopsy forceps. Resected and retrieved. - The examination was otherwise normal on direct and retroflexion views. Recommendation: - Discharge patient to home. - High fiber diet. - Continue present medications. - Await pathology results. - Repeat colonoscopy in 3 - 5 years for surveillance based on pathology results. Procedure Code(s): --- Professional --- 38147, PT, Colonoscopy, flexible; with biopsy, single or multiple Diagnosis Code(s): --- Professional --- Z86.010, Personal history of colonic polyps D12.4, Benign neoplasm of descending colon D12.2, Benign neoplasm of ascending colon CPT copyright 2017 [employer]. All rights reserved. The codes documented in this report are preliminary and upon uptwister tender review may be revised to meet current compliance requirements. MD Fanny Siddiqui MD 04/08/2020 8:44:17 AM This report has been signed electronically. Number of Addenda: 0 Note Initiated On: 04/08/2020 7:30 AM
== END 2020-04-08 09:35 | disposition home or self-care (01) ==
LOC: EN 07:07 → AC 07:08
PROVIDERS: PCP Family Medicine; Referring Provider Family Medicine; Visit Provider Surgery
PROC: 0DJD8ZZ Inspection of Lower Intestinal Tract, Via Natural or Artificial Opening Endoscopic (ICD-10-PCS; CPT 45378; principal; 2020-04-08 07:55)
DX: D12.2 Benign neoplasm of ascending colon (principal); D12.4 Benign neoplasm of descending colon; Z86.010 Personal history of colon polyps; K21.9 Gastro-esophageal reflux disease without esophagitis; F41.9 Anxiety disorder, unspecified; F32.9 Major depressive disorder, single episode, unspecified; Z20.822 Contact with and (suspected) exposure to COVID-19; Z79.899 Other long term (current) drug therapy
CPT/HCPCS: 45380; 87426; 88305; C9803; J7120; J2405

== ENCOUNTER → 2021-09-27 | Outpatient (CLI) | payer OTHER, SELFPAY ==
--- NOTE | 2021-09-27 07:50 | BI_ITS ---
MAMMOGRAPHY - BILATERAL SCREENING REASON FOR EXAM: Female, 51 years old. Routine annual screening examination. PERTINENT HISTORY: No personal history of breast cancer. Bilateral breast implants. TECHNIQUE: Digital bilateral breast ralph (3D mammographic acquisition) in the CC and MLO projections. 2-D mediolateral oblique (MLO) and craniocaudad (CC) views of both breasts were obtained. Implant displacement views were also utilized. CAD: Full Field Digital Mammography with Computer Added Detection was performed. COMPARISON: Comparison mammogram from 08/21/2018, 05/30/2017. FINDINGS: Breast Composition: There are scattered areas of fibroglandular density. There are no dominant masses or suspicious calcifications. Stable appearance of the bilateral breast implants. No other significant abnormalities are identified. There has been no significant change since the prior study. BI/SCRN MAMM (CAD)W/RALPH BILAT IMPRESSION: Stable bilateral screening mammogram. Yearly follow-up mammogram recommended. (A) ASSESSMENT CATEGORY: BIRADS Category 2: Benign. A letter regarding these results will be sent to the patient by the facility within 30 days. Approximately 10% of breast cancers are not detected by mammography. A normal mammogram should not delay biopsy of a clinically suspicious abnormality. Electronically Signed: Naseem Saldaña, at 13:25 EDT ,
== END | disposition home or self-care (01) ==
PROVIDERS: PCP Family Medicine; Visit Provider Family Medicine
DX: Z12.31 Encounter for screening mammogram for malignant neoplasm of breast (principal); Z98.82 Breast implant status
CPT/HCPCS: 77063; 77067

== ENCOUNTER 2021-10-19 21:57 | Emergency (ER) | payer OTHER, SELFPAY ==
[2021-10-19 21:57] VITALS: BP 150/104; PULSE 84; RESP 18; TEMP 36.4; O2SAT 95; BMI 29.6
[2021-10-19 22:00] VITALS: BP 181/101; PULSE 87
--- NOTE | 2021-10-19 22:10 | EKG12_ITS ---
Test Reason : CP Blood Pressure : / mmHG Vent. Rate : 078 BPM Atrial Rate : 078 BPM P-R Int : 164 ms QRS Dur : 092 ms QT Int : 378 ms P-R-T Axes : 028 006 030 degrees QTc Int : 430 ms Normal sinus rhythm Normal ECG Confirmed by NAREN CHEEK, LUCY ([id number]), newspaper managing editor ALBERTA BURTON ([id number]) on 10/20/2021 11:19:33 AM Referred By: Confirmed By:LUCY SNEED MD
--- NOTE | 2021-10-19 22:10 | RAD_ITS ---
We are attempting to reach an attending provider to discuss findings. An addendum with communication details will be sent when the communication is complete. STUDY: X-RAY CHEST REASON FOR EXAM: Female, 51 years old. chest pain TECHNIQUE: AP portable COMPARISON: 11/26/2010 FINDINGS: Lungs are clear. There is a curvilinear radiolucency along the lateral aspect of the right lower lobe which has the appearance of a small loculated pneumothorax.. There is no pleural effusion.. Normal size heart. Normal mediastinum and tressa. Normal visualized pulmonary arteries. Normal visualized aortic arch and descending thoracic aorta. Normal visualized thoracic spine. Normal visualized ribs, clavicles, and shoulders. There is no demonstrated abnormality of the visualized soft tissue structures of the upper abdomen. RAD/Chest 1 View (Portable) IMPRESSION: Findings suspicious for small loculated pneumothorax in the right hemithorax. Correlation with chest film in expiration would be helpful for further evaluation. Electronically Signed: Sj Elena MD at 22:38 EDT ,
--- NOTE | 2021-10-19 22:14 | ED.VIS.CHEST ---
HPI History of Present Illness Chief Complaint: Chest Pain Informant: patient and spouse/S.O. Narrative Narrative: Very pleasant 51-year-old female presenting to the emergency room with chest pressure. Patient states that recently she did a motorcycle vacation to [place]. While there she had an episode of tachycardia on her iWatch. She followed up with her primary care physician and mention this and she did a Holter monitor which showed several episodes of A. fib. She was referred to cardiology and has an upcoming appointment with Dr. Keller. She states for the past couple days she has had a pressure in her chest but today it was worse. She notes radiation to her shoulder into the low back. She states its been constant during the day but then worse this evening. There is a family history of coronary artery disease. She was recently started on rosuvastatin and was told that she is a borderline diabetic. [facility] Medical History (Updated 10/20/21 @ 00:[address] Maulik Velasco DO) Anxiety Hypercholesterolemia Home Medications duloxetine 60 mg capsule,delayed release 60 mg PO DAILY 04/03/13 [History Last Taken Unknown] rosuvastatin 5 mg tablet 5 mg PO QHS 01/29/19 [History Last Taken Unknown] aspirin 81 mg capsule 81 mg PO DAILY 10/19/21 [History Last Taken Unknown] pantoprazole 40 mg tablet,delayed release (Protonix) 40 mg PO DAILY #14 tabs 10/20/21 [Rx Last Taken Unknown] Allergy/AdvReac Type Severity Reaction Status Date / Time codeine AdvReac Vomiting Verified 10/19/21 21:57 Family History Father Heart disease Surgical History History of hysterectomy S/P appendectomy S/P breast augmentation S/P S/P cholecystectomy S/P eye surgery S/P tonsillectomy Social History Smoking Status: Never smoker alcohol intake: current details: rarely substance use type: does not use caffeine: Yes what type of physical activity do you participate in: none seatbelt use: always do you feel safe at home: Yes additional social history: - [employer] 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 [employer] ED Constitutional Constitutional ED: Denies chills or weight loss Eyes Eyes: Denies change in vision or diplopia ENT ENT ED: Denies ear pain, rhinorrhea or sore throat Cardiovascular Cardiovascular: Reports chest pain, palpitations and racing heartbeat; Denies orthopnea Respiratory/Chest Respiratory/Chest: Reports dyspnea; Denies cough, dyspnea on exertion or orthopnea Gastrointestinal Gastrointestinal: Denies abdominal pain, diarrhea, nausea or vomiting Genitourinary Genitourinary ED: Denies dysuria, hematuria or urinary frequency Musculoskeletal Musculoskeletal: Denies arthralgias or myalgias Integumentary Denies abscess or rash Neurologic Neurologic: Denies headache(s) or weakness Psychiatric Psychiatric: Denies anxiety, depression, suicidal ideation or suicidal thoughts Endocrine Endocrinology: Denies polydipsia, polyphagia or polyuria Allergic/Immunologic Allergic/Immunologic ED: Denies mouth swelling, tongue swelling or urticaria EXAM Physical Exam Const Vital Signs: 10/19/21 21:57 10/19/21 22:00 10/19/21 22:01 Temperature 97.5 F L Temperature Source Temporal Pulse Rate 84 87 Respiratory Rate 18 Respiratory Effort Normal Non-Labored Blood Pressure 150/104 H 181/101 H Blood Pressure Mean 119 127 Pulse Ox 95 Oxygen Delivery Method Room Air 10/19/21 23:13 Temperature Temperature Source Pulse Rate 78 Respiratory Rate 18 Respiratory Effort Blood Pressure 131/90 H Blood Pressure Mean 103 Pulse Ox 95 Oxygen Delivery Method Room Air Positive well nourished and well developed General Appearance ED: well developed HEENT Reports normocephalic, head/scalp atraumatic and moist mucous membranes Eyes PERRL and EOMs intact bilaterally Neck no lymphadenopathy, supple and no JVD Resp normal respiratory effort and clear to auscultation bilaterally Cardio regular rate, regular rhythm and no murmurs GI normal to inspection, nondistended, normoactive bowel sounds and non-tender Palpation: soft Back/Spine no CVA tenderness and normal ROM Extremity normal to inspection General Extremety ED: Negative for edema General Extremity: Negative for edema Neuro oriented x3 and CN's II-XII intact bilaterally Sensorium / Orientation: alert Motor Exam: strength 5/5 throughout Psych mental status grossly normal Mood & Affect: Negative for depressed or tearful Skin no rashes or lesions noted and no wounds Heart Score History: Moderately Suspicious ECG: Normal Age: >45 - <65 years Risk Factors: 1 or 2 Risk Factors Score: 3 MDM MDM MDM Narrative Medical decision making narrative: My impression of the single view chest x-ray is no acute process/normal mediastinal silhouette. The radiologist called me and stated that he is concerned about a potential for a loculated pneumothorax in the right hemithorax.Patient's troponin is 7. However her D-dimer was elevated at 0.65. Therefore c confirmatory CTA was obtained. This was negative for dissection or embolism. There is also no pneumothorax noted. At this point do not think we need a delta troponin as she has had symptoms for greater than 8 hours and her troponin is 7. She initially thought her symptoms were related to reflux which I think is reasonable to have her trial Protonix as she waits to get in with cardiology. In the interim return if worsening or concerns Lab Data Attestation: I reviewed the patient's lab results. Labs: Laboratory Results - last 24 hr 10/19/21 10/19/21 10/19/21 22:14 22:14 22:14 WBC 7.6 RBC 4.98 Hgb 14.9 Hct 43.9 MCV 88.2 MCH 29.9 MCHC 33.9 RDW Std Deviation 41.5 RDW Coeff of Rosario 12.9 Plt Count 190 MPV 10.5 Immature Gran % (Auto) 0.400 Neut % (Auto) 52.4 Lymph % (Auto) 30.2 Berg[place] % (Auto) 9.4 Eos % (Auto) 6.9 H Baso % (Auto) 0.7 Absolute Neuts (auto) 4.0 Absolute Lymphs (auto) 2.28 Nucleated RBC % 0 D-Dimer Quant (PE/DVT) 0.65 H* Sodium 141 Potassium 3.6 Chloride 106 Carbon Dioxide 29.0 Anion Gap 6 BUN 15 Creatinine 0.80 Estim Creat Clear Calc 79.09 Est GFR (MDRD) Af Amer 96 Est GFR (MDRD) Non-Af 80 BUN/Creatinine Ratio 18.8 Glucose 102 Calcium 9.6 Troponin I High Sens 7 Radiography Diagnostic Testing: Clinical Impression(s) from Imaging Studies Chest X-Ray 10/19/21 22:10 IMPRESSION: Findings suspicious for small loculated pneumothorax in the right hemithorax. Correlation with chest film in expiration would be helpful for further evaluation. Electronically Signed: Sj Elena MD at 22:38 EDT , ADDENDUM: 10/19/21 [id number] IMPRESSION: Findings suspicious for small loculated pneumothorax in the right hemithorax. Correlation with chest film in expiration would be helpful for further evaluation. N.B. : The above Results were Read Back by Sj Elena MD to OTILIA Evangelista, and understanding confirmed on 10/19/2021 22:48:41 (ET). Electronically Signed: Sj Elena MD at 22:38 EDT , Chest CTA 10/19/21 22:45 IMPRESSION: Normal CTA chest examination, without a demonstrated pulmonary embolism or arterial dissection. Lungs are clear Electronically Signed: Bruce Law DO at 23:42 EDT , EKG Initial EKG: Attestation: I personally reviewed and interpreted this EKG as follows: Comments: Normal sinus rhythm with a ventricular rate of 78 bpm. Discharge Plan Triage Chief Complaint: Chest Pain ED Provider: Maulik Velasco Dx/Rx/DC Orders Clinical Impression: Chest pain, Hypercholesterolemia, Paroxysmal atrial fibrillation Instructions: ED Chest Pain, Uncertain Cause Prescriptions: New pantoprazole [Protonix] 40 mg tablet,delayed release (DR/EC) 40 mg PO DAILY Qty: 14 0RF No Action duloxetine 60 MG capsule 60 mg PO DAILY rosuvastatin 5 MG tablet 5 mg PO QHS aspirin 81 mg Capsule 81 mg PO DAILY Primary Care Provider: Audi Louis Referrals: Yonny Keller MD [Med Staff - Active Staff] - As soon as possible Audi Louis MD [Primary Care Provider] - Disposition Disposition: Home, Self Care
[2021-10-19] MEDS: Aspirin 81 MG TAB.CHEW 324 MG PO (22:16)
[2021-10-19 22:17] LABS: Absolute Lymphocyte Count 2.28 X10^3/uL (0.83-4.51); Basophil# 0.05 X10^3/uL; Basophil% 0.7 % (0-1); Eosinophil# 0.52 X10^3/uL; Eosinophils% 6.9 % (0-5); Hematocrit 43.9 % (37-47); Hemoglobin 14.9 g/dL (12.0-15.0); Lymphocyte # 2.28 X10^3/ul (0.83-4.51); Lymphocyte % 30.2 % (19-41); Mean Corp Hgb Conc 33.9 g/dL (32-36); Mean Corpuscular Hgb 29.9 pg (27.0-32.0); Mean Corpuscular Volume 88.2 fL (81-99); Mean Platelet Vol. 10.5 fl (6.2-12.0); Monocyte# 0.71 X10^3/uL; Monocyte% 9.4 % (0-10); NRBC Flagged by Analyzer 0 % (0-5); Neutrophil # 3.97 X10^3/uL (2.7-7.7); Neutrophil % 52.4 % (47-70); Platelet Count 190 K/mm3 (150-450); RBC Distribution Width CV 12.9 % (11.6-14.6); RBC Distribution Width SD 41.5 fl (35.1-43.9); Red Blood Count 4.98 M/mm3 (4.2-5.4); White Blood Count 7.6 K/mm3 (4.4-11.0)
[2021-10-19 22:34] LABS: D-Dimer Quantitative (DVT/PE) 0.65 FEU/ug/m (0.27-0.49)
[2021-10-19 22:36] LABS: Anion Gap 6 (5-15); BUN 15 mg/dL (7-18); BUN/Creat Ratio 18.8 RATIO (10-20); Calcium,Total 9.6 mg/dL (8.5-10.1); Chloride 106 mmol/L (98-107); EST Glomerular Filtration Rate 80 mL/min (>60); Est Glom Filt Rate - Afr Amer 96 mL/min (>60); Estimated Creatinine Clearance 79.09 ml/min; Glucose 102 mg/dL (74-106); Potassium 3.6 mmol/L (3.5-5.1); Sodium Level 141 mmol/L (136-145); Troponin-I HS (w/2H Reflex) 7 pg/mL (3.0-54.0)
--- NOTE | 2021-10-19 22:45 | CT_ITS ---
STUDY: CTA CHEST REASON FOR EXAM: Female, 51 years old. pulmonary embolism RADIATION DOSAGE (If Supplied By Facility): CTDIvol = ( 14.48 ) mGy, DLP = ( 502.35 ) mGycm TECHNIQUE: The examination was performed with the intravenous administration of IV 100mL Isovue-370. Post-processing of the angiographic images was performed, with multiplanar reformation and 3D reconstruction. Individualized dose optimization techniques were used for this CT. COMPARISON: None. FINDINGS: Normal enhancement of the main pulmonary artery and right and left pulmonary arteries. Normal enhancement of the bilateral peripheral pulmonary arteries. There is no demonstrated pulmonary embolism. Normal thoracic aorta and visualized great vessels. There is no demonstrated aortic dissection. There is cardiomegaly. Normal mediastinum. Normal hilar regions. Normal visualized trachea and bronchi. The lungs are well expanded. Normal pulmonary parenchyma. Normal pleura. Normal chest wall structures. Normal osseous structures. Normal visualized upper abdomen. CT/CTA Chest W/WO Contrast IMPRESSION: Normal CTA chest examination, without a demonstrated pulmonary embolism or arterial dissection. Lungs are clear Electronically Signed: Bruce Law DO at 23:42 EDT ,
[2021-10-19 23:13] VITALS: BP 131/90; PULSE 78; RESP 18; O2SAT 95
[2021-10-20 00:08] VITALS: BP 133/89; PULSE 73; RESP 22; O2SAT 93
[2021-10-20 00:14] LABS: Reflex Troponin-HS? (from REC) Y
== END 2021-10-20 00:11 | disposition home or self-care (01) ==
PROVIDERS: Emergency Provider Emergency Medicine; PCP Family Medicine; Visit Provider Emergency Medicine
DX: I48.0 Paroxysmal atrial fibrillation (principal); R07.89 Other chest pain; E78.00 Pure hypercholesterolemia, unspecified; R73.03 Prediabetes; Z79.899 Other long term (current) drug therapy
CPT/HCPCS: 71045; 71275; 80048; 84484; 85025; 85379; 93005; 99284; Q9967; A4216

== ENCOUNTER → 2021-12-14 | Outpatient (CLI) | payer OTHER, SELFPAY ==
--- NOTE | 2021-12-14 08:04 | ECHOD_ITS ---
Reason For Study: ARRYTHMIA Procedure This was a 2D Doppler, Color Flow transthoracic echocardiogram. The exam was of adequate technical quality. Exam performed in department. Left Ventricle Normal LV size. Sigmoid septum. Left ventricular systolic function is normal. The estimated ejection fraction is 65 %. No evidence for diastolic dysfunction. No regional wall motion abnormalities noted. Right Ventricle Normal RV size. Normal systolic function. Atria Normal left atrium. Normal right atrium. No doppler evidence for ASD. Mitral Valve There is no mitral annular calcification. Normal mitral valve. Trivial mitral valve insufficiency. Tricuspid Valve Normal tricuspid valve. Trivial tricuspid valve insufficiency. Unable to estimate RV systolic pressure due to insufficient tricuspid regurgitant envelope. Aortic Valve Trisinus/trileaflet aortic valve. Normal aortic valve. Pulmonic Valve The pulmonic valve is not well visualized. Great Vessels Normal sized aortic root. Calcified aortic root. Pericardium/Pleural No pericardial effusion. MMode/2D Measurements & Calculations Ao root diam: 3.7 cm LAV(MOD-bp): 34.7 ml LVAd ap4: 26.4 cm2 LAV(MOD-bp) Indexed: 18.0 ml/m2 LVLd ap4: 8.3 cm LAV(MOD-sp2): 33.0 ml EDV(MOD-sp4): 68.5 ml LAV(MOD-sp4): 35.6 ml EDV(sp4-el): 71.2 ml LVAs ap4: 13.0 cm2 LVLs ap4: 6.2 cm ESV(MOD-sp4): 22.4 ml ESV(sp4-el): 23.1 ml EF(MOD-sp4): 67.3 % EF(sp4-el): 67.6 % SV(MOD-sp4): 46.1 ml SV(sp4-el): 48.1 ml LA A4 area: 14.8 cm2 LA dimension(2D): 3.8 cm RA A4 area: 12.2 cm2 Time Measurements MV dec time: 0.29 sec Doppler Measurements & Calculations MV E max balbir: 67.1 cm/sec Lat Peak E' Balbir: 9.9 cm/sec Med Peak E' Balbir: 5.4 cm/sec MV A max balbir: 61.9 cm/sec E/E' lat: 6.8 E/E' med: 12.4 MV E/A: 1.1 MV V2 max: 75.0 cm/sec MV dec slope: 228.6 cm/sec2 Ao V2 max: 105.6 cm/sec MV max P.3 mmHg Ao max P.5 mmHg MV V2 mean: 40.5 cm/sec Ao V2 mean: 79.6 cm/sec MV mean P.84 mmHg Ao mean P.8 mmHg MV V2 VTI: 24.5 cm Ao V2 VTI: 24.7 cm LV V1 max: 79.3 cm/sec PA V2 max: 85.6 cm/sec LV V1 max P.5 mmHg PA V2 mean: 50.5 cm/sec LV V1 mean P.2 mmHg LV V1 mean: 51.2 cm/sec LV V1 VTI: 18.1 cm ECHO/Echo Complete Interpretation Summary Left ventricular systolic function is normal. The estimated ejection fraction is 65 %. Sigmoid septum. Trivial mitral valve insufficiency. Trivial tricuspid valve insufficiency. Calcified aortic root. Unable to estimate RV systolic pressure due to insufficient tricuspid regurgita nt envelope. No evidence for diastolic dysfunction. Ordering Physician: Audi Manzano Referring Physician: Audi Manzano Performed By: Stacy Tee RCS
--- NOTE | 2021-12-14 12:10 | STRESSREP ---
Stress Test Report Date: 12-14-2021 Procedure: Exercise tolerance test Indications: Chest pain; cardiac dysrhythmia Consent: Per the patient Procedure: The patient exercised on a Sidney protocol for 9 minutes completing Stage III achieving a peak heart rate of 166 bpm (99% predicted maximal heart rate) with a resting blood pressure of 122/90 mmHg and a peak blood pressure 166/84 mmHg and a peak MET capacity of approximately 10 MET's. The baseline ECG demonstrated normal sinus rhythm. The peak exercise ECG demonstrated somatic/motion artifact with no obvious ECG changes. There were no cardiac dysrhythmias pretest, during exercise, or recovery. The functional capacity was considered good. The patient had no complaint of chest discomfort during exercise or recovery. The examination was discontinued secondary to dyspnea. Impression: 1. Technically adequate (percent predicted maximal heart rate greater than 85%) exercise tolerance test 2. Peak exercise ECG with somatic/motion artifact with no obvious ECG changes 3. There were no cardiac dysrhythmias during exercise or recovery This note was generated with Integen[employer]ation software. It may contain incorrect words, spelling, and punctuation that were not noted in checking the note before signing.
== END | disposition home or self-care (01) ==
LOC: CVS 08:03
PROVIDERS: PCP Family Medicine; Referring Provider Internal Medicine Cardiovascular Disease; Visit Provider Internal Medicine Cardiovascular Disease
DX: I47.1 Supraventricular tachycardia (principal); G47.33 Obstructive sleep apnea (adult) (pediatric); R07.9 Chest pain, unspecified; E78.00 Pure hypercholesterolemia, unspecified
CPT/HCPCS: 93017; 93306

== ENCOUNTER 2022-04-26 09:42 | Outpatient (RCR) | payer OTHER, SELFPAY | END 2022-05-13 23:59 | LOC: NS 09:42 | PROVIDERS: PCP Family Medicine; Visit Provider Obstetrics & Gynecology | DX: Z71.3 Dietary counseling and surveillance (principal); E66.3 Overweight; Z68.29 Body mass index [BMI] 29.0-29.9, adult; I10 Essential (primary) hypertension; E78.00 Pure hypercholesterolemia, unspecified | CPT/HCPCS: 97802 ==

== ENCOUNTER 2022-06-02 10:12 | Outpatient (RCR) | payer OTHER, SELFPAY | END 2022-06-12 23:59 | LOC: NS 10:12 | PROVIDERS: PCP Family Medicine; Referring Provider Obstetrics & Gynecology; Visit Provider Obstetrics & Gynecology | DX: Z71.3 Dietary counseling and surveillance (principal); E66.3 Overweight; Z68.29 Body mass index [BMI] 29.0-29.9, adult; I10 Essential (primary) hypertension; E78.00 Pure hypercholesterolemia, unspecified | CPT/HCPCS: 97803 ==

== ENCOUNTER 2022-07-05 17:57 | Outpatient (RCR) | payer OTHER, SELFPAY ==
[2022-07-05 19:39] LABS: Thyroid Stim Hormone (TSH) 0.99 uIU/mL (0.358-3.74)
== END 2022-07-13 23:59 ==
LOC: NS 17:57
PROVIDERS: PCP Family Medicine; Referring Provider Obstetrics & Gynecology; Visit Provider Obstetrics & Gynecology
DX: Z71.3 Dietary counseling and surveillance (principal); E66.3 Overweight; Z68.29 Body mass index [BMI] 29.0-29.9, adult; I10 Essential (primary) hypertension; E78.00 Pure hypercholesterolemia, unspecified
CPT/HCPCS: 36415; 84443

== ENCOUNTER 2022-07-21 10:04 | Outpatient (RCR) | payer OTHER, SELFPAY | END 2022-08-12 23:59 | LOC: NS 10:04 | PROVIDERS: PCP Family Medicine; Referring Provider Obstetrics & Gynecology; Visit Provider Obstetrics & Gynecology | DX: Z71.3 Dietary counseling and surveillance (principal); E66.3 Overweight; Z68.29 Body mass index [BMI] 29.0-29.9, adult; I10 Essential (primary) hypertension; E78.00 Pure hypercholesterolemia, unspecified | CPT/HCPCS: 97803 ==

== ENCOUNTER → 2022-10-18 | Outpatient (CLI) | payer OTHER, SELFPAY ==
--- NOTE | 2022-10-18 07:51 | BI_ITS ---
MAMMOGRAPHY - BILATERAL SCREENING REASON FOR EXAM: Female, 52 years old. Routine annual screening examination. PERTINENT HISTORY: Non-contributory. History of bilateral breast implants. TECHNIQUE: Digital bilateral breast ralph (3D mammographic acquisition) in the CC and MLO projections. 2-D mediolateral oblique (MLO) and craniocaudad (CC) views of both breasts were obtained. CAD: Full Field Digital Mammography with Computer Added Detection was performed. COMPARISON: Comparison is made with prior study September 27, 2021 and August 21, 2018. FINDINGS: Breast Composition: There are scattered areas of fibroglandular density. There are no dominant masses or suspicious calcifications. Stable appearance of the bilateral breast implants. No other significant abnormalities are identified. There has been no significant change since the prior study. BI/SCRN MAMM (CAD)W/RALPH BILAT IMPRESSION: Stable bilateral screening mammogram. Yearly follow-up mammogram recommended. (A) ASSESSMENT CATEGORY: BIRADS Category 2: Benign. A letter regarding these results will be sent to the patient by the facility within 30 days. Approximately 10% of breast cancers are not detected by mammography. A normal mammogram should not delay biopsy of a clinically suspicious abnormality. [id number] Electronically Signed: Milind Moore MD at 11:18 EDT ,
== END | disposition home or self-care (01) ==
PROVIDERS: PCP Family Medicine; Referring Provider Obstetrics & Gynecology; Visit Provider Obstetrics & Gynecology
DX: Z12.31 Encounter for screening mammogram for malignant neoplasm of breast (principal)
CPT/HCPCS: 77063; 77067

== ENCOUNTER → 2022-12-08 | Outpatient (CLI) | payer OTHER, SELFPAY | END | disposition home or self-care (01) | LOC: SL 21:00 | PROVIDERS: PCP Family Medicine; Referring Provider Internal Medicine Pulmonary Disease; Visit Provider Internal Medicine Pulmonary Disease | DX: G47.33 Obstructive sleep apnea (adult) (pediatric) (principal) | CPT/HCPCS: 95810 ==

== ENCOUNTER 2023-04-28 07:45 | Day surgery (SDC) | payer OTHER, SELFPAY ==
[2023-04-28 08:05] VITALS: BP 138/85; PULSE 76; RESP 16; TEMP 36.2; O2SAT 96; BMI 27.8
[2023-04-28] MEDS: Lactated Ringers 1,000 ML 15 ML IV (08:10)
--- NOTE | 2023-04-28 08:10 | HP.PCM_ITS ---
HPI - General General Date of Service: 04/28/23 HPI Narrative HELEN BURGOS, is a 52 F who presents for screening colonoscopy due to history of colon polyps. Patient's last colonoscopy was 04/08/2023 she had 2 tubular adenomas at that time. Patient's maternal uncle had colon cancer but no immediate relatives. Patient has bowel movements daily denies any blood. Patient denies any chronic abdominal pain/nausea/vomiting. does have reflux and is is on medication for this. [facility] Medical History (Updated 04/28/23 @ 08:[address] Fanny Knott MD) Acute upper respiratory infection Anxiety BiPAP (biphasic positive airway pressure) dependence Cardiology follow-up encounter Contact with or suspected exposure to other viral communicable disease Depression Essential hypertension Family hx of colon cancer GERD (gastroesophageal reflux disease) High cholesterol History of echocardiogram History of IBS History of stress test HTN (hypertension) Hx of adenomatous colonic polyps Hypercholesterolemia Non-smoker KERA (obstructive sleep apnea) PONV (postoperative nausea and vomiting) Pure hypercholesterolemia Restless legs Sleep apnea Urinary tract infection Wears contact lenses Home Medications duloxetine 60 mg capsule,delayed release 60 mg PO DAILY 04/03/13 [History Last Taken 04/27/23] rosuvastatin 5 mg tablet 5 mg PO QHS 01/29/19 [History Last Taken 04/27/23] linaclotide 72 mcg capsule (Linzess) 72 mcg PO DAILY 03/07/23 [History Last Taken 04/27/23] lisdexamfetamine 70 mg capsule (Vyvanse) 70 mg PO DAILY 30 days #30 caps 04/04/23 [Rx Last Taken 04/27/23] pantoprazole 40 mg tablet,delayed release (Protonix) 40 mg PO DAILY PRN GERD 04/26/23 [History Last Taken 04/27/23] Allergy/AdvReac Type Severity Reaction Status Date / Time codeine AdvReac Vomiting Verified 04/28/23 08:05 Family History (Updated 03/07/23 @ 14:40 by Sierra Peters) Father CAD (coronary artery disease) History of coronary artery bypass surgery CVA (cerebral vascular accident) Colon polyps Uncle Colon cancer Surgical History H/O section History of appendectomy History of breast augmentation History of cholecystectomy History of eye surgery History of hysterectomy History of tonsillectomy Hx of colonoscopy with polypectomy Social History Smoking Status: Never smoker alcohol intake: current details: rarely substance use type: does not use caffeine: Yes what type of physical activity do you participate in: none seatbelt use: always do you feel safe at home: Yes additional social history: - Jose- Deidre 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 Past Medical/Surgical History Planned Operation Planned Operative Procedure/s: CSCOPE S.O.S: No Previous Hospitalizations/Surgeries HX Hospitalizations: No HX of Surgeries: EYE SURGERY X2 APPENDECTOMY CSECTION GALLBLADDER LAPAROSCOPY TONSILLECTOMY BREAST AUGMENTATION HYSTERECTOMY 07/2017 COLONOSCOPY 02/11/19 Any Problems With Anesthesia: Yes (PONV) You/Your Family Experience Fever (Hyperthermia) With Anes: No Cholinesterase deficiency: No Cardiovascular Hx Chest Pain within Last 2 months: No Hx of Irregular Heartbeat and/or Afib: No Hx Heart Attack: No Hx Congestive Heart Failure: No Hx Rheumatic Fever: No Hx Hypertension: No (KEEPING AN EYE ON BP) Hx Internal Defibrillator: No Hx Pacemaker: No Hx Cardiac Catheterization: No Hx Cardiac Surgery/Stents/Etc.: No Hx Stress Test: No Hx Pain in Legs when Walking/Leg Cramps: No Respiratory Chronic Cough: No HX of Shortness of Breath: No Hoarseness: No Hx Chronic Obstructive Pulmonary Disease (COPD): No Hx Asthma: No Hx Emphysema: No Hx Sleep Apnea: Yes CPAP: No BIPAP: Yes (NON COMPLAINT) Hx Respiratory Tract Infection/Cold (presently): No Result (for STOP score): Positive Hx Smoking: No Smoking Status: Never smoker Gastrointestinal Controlled With Meds: Yes Hx Gastrointestinal Disorders: Yes (IBS) Hx Gastrointestinal Bleed: No Hx Ulcer: No Hx Hiatal Hernia: No Difficulty Chewing/Swallowing: No Special diet followed at home: No Hx Unplanned Weight Loss of 20#: No HX Unplanned Weight Gain of 20#: No Neurological Hx Seizures: No HX Syncope/Blackout Spells/Unconsciousness: No Hx Transient Ischemic Attacks (TIA): No Hx Multiple Sclerosis: No Hx Parkinson's Disease: No Hx Head/Neck Injury: No Hx Headaches: No Hx Back Injury/Pain: No Recent Onset of Speech Difficulty: No Restless Legs: Yes Does patient have nerve stimulator: No Blood Disorder Hx Leukemia: No Bleeding Tendencies: No Hx Deep Vein Thrombosis: No Hx High Cholesterol: No Blood Transmitted Disease: No Hx Hepatitis: No Hx Cirrhosis: No Hx Anemia: No Hx Blood Disorders: No Reproduction : No Is Patient Lactating: No Hx Hysterectomy: Yes Hx Tubal Ligation: No Are You Post Menopause: Yes Genitourinary Hx Renal Disease: No (FREQ BLADDER INFECTIONS) Musculoskeletal Hx Arthritis: No Hx Rheumatoid Arthritis: No Hx Gout: No Recent Onset of an Orthopedic Problem: No Endocrine Hx Diabetes: No Thyroid Disease: No Hx Steroid Therapy: No Psycho/Social Hx Substance Use: No Hx Alcohol Use: No Hx Anxiety: Yes Hx Depression: Yes Mental Illness: No Hx Dementia: No Miscellaneous Hx Cancer: No Recent Exposure to Contagious Disease: No Hx of C-Diff: No Any Loose Teeth: No Allergies codeine Adverse Reaction (Verified 04/28/23 08:05) Vomiting Discharge Is Pt Admitted From a Half-Way, or a Custodial: No After D/C, Where Do you Plan to Go: Return Home Physical Exam Const alert, oriented x3 and no apparent distress HEENT normocephalic and head/scalp atraumatic Resp normal respiratory effort Cardio regular rate GI soft to palpation and non-tender; Negative for non-distended Palpation: Negative for guarding Extremity no clubbing, cyanosis or edema Skin no rashes or lesions noted Neuro CN's II-XII intact bilaterally Psych mental status grossly normal Assessment & Plan Assessment/Plan (1) Hx of adenomatous colonic polyps: Surgery Risks - Colonoscopy I discussed with the patient the risks of the procedure: Yes Risks Include but are not Limited To: Risks include but are not limited to: Bleeding, perforation requiring further surgery, inability to complete colonoscopy requiring barium enema.
--- NOTE | 2023-04-28 09:00 | COLBX_PTH ---
PATIENT: HELEN BURGOS LOC: EN U#:[id number] AGE/SX: 52/F ROOM: RE04/28/[address]: Dr. Fanny Knott MD : 1970 BED: DIS: 04/28/2023 SPEC #: [id number] RECD: 04/28/23 11:48 STATUS: RASHEEDA MARQUISE #: [id number] JOSH: 04/28/23 09:[address]: Fanny Knott DEPT: SURGICAL PATHOLOGY RECD BY: Enma Medeiros ENTERED: 04/28/23 11:48 SP TYPE: COLON BX OT DR: Dr. Audi Louis MD Tissues: Descending colon Procedures: Surgery Specimen Level IV HEADER OPERATION: Colonoscopy- open access with biopsy PRE-OP DIAGNOSIS: History of adenomatous colonic polyps TISSUE SUBMITTED: Descending colon biopsy MICROSCOPIC DIAGNOSIS Descending colon, biopsy; Tubular adenoma. HEIDY/ 05/01/2023 MICROSCOPIC DESCRIPTION Slides are reviewed. GROSS DESCRIPTION Received in fixative is one container labeled with the patient's name and designated Descending colon biopsy. The specimen consists of one irregular fragment of light colmenares soft tissue that measures 0.5 x 0.3 x 0.1 cm. The specimen is totally submitted in one cassette. HEIDY/ 04/28/23 TC:3 CPT: 30459
[2023-04-28 09:52] VITALS: BP 104/75; BP 138/85; PULSE 68; RESP 16; TEMP 36.8; O2SAT 96
--- NOTE | 2023-04-28 09:54 | OP.COLON_ITS ---
Patient Name: Em White Procedure Date: 04/28/2023 9:10 AM Date of : 1970 Age: 52 Procedure: Colonoscopy Indications: High risk colon cancer surveillance: Personal history of colonic polyps Providers: Fanny Knott MD Referring MD: Audi Louis MD Medicines: Monitored Anesthesia Care Patient Profile: This is a 52 year old female. Last Colonoscopy: March 2020. Complications: No immediate complications. Procedure: Pre-Anesthesia Assessment: - Prior to the procedure, a History and Physical was performed, and patient medications and allergies were reviewed. The patient's tolerance of previous anesthesia was also reviewed. The risks and benefits of the procedure and the sedation options and risks were discussed with the patient. All questions were answered, and informed consent was obtained. Prior Anticoagulants: The patient has taken no anticoagulant or antiplatelet agents. ASA Grade Assessment: Per anesthesia. After reviewing the risks and benefits, the patient was deemed in satisfactory condition to undergo the procedure. After I obtained informed consent, the scope was passed under direct vision. Throughout the procedure, the patient's blood pressure, pulse, and oxygen saturations were monitored continuously. The pediatric colonoscope was introduced through the anus and advanced to the cecum, identified by appendiceal orifice and ileocecal valve. The colonoscopy was performed without difficulty. The patient tolerated the procedure well. The quality of the bowel preparation was good. Scope In: 9:22:34 AM Scope Withdrawal Time 0 hours 10 minutes 18 seconds Scope Out: 9:47:34 AM Total Procedure Duration Time 0 hours 25 minutes 0 seconds Findings: The perianal and digital rectal examinations were normal. A less than 5 mm polyp was found in the descending colon. The polyp was sessile. The polyp was removed with a cold biopsy forceps. Resection and retrieval were complete. The exam was otherwise without abnormality on direct and retroflexion views. Impression: - One less than 5 mm polyp in the descending colon, removed with a cold biopsy forceps. Resected and retrieved. - The examination was otherwise normal on direct and retroflexion views. Recommendation: - Discharge patient to home. - Resume previous diet. - Await pathology results. - Repeat colonoscopy in 5 years for surveillance based on pathology results. - Continue present medications. Procedure Code(s): --- Professional --- 19994, PT, Colonoscopy, flexible; with biopsy, single or multiple Diagnosis Code(s): --- Professional --- Z86.010, Personal history of colonic polyps D12.4, Benign neoplasm of descending colon CPT copyright 2021 [employer]. All rights reserved. The codes documented in this report are preliminary and upon data reviewer review may be revised to meet current compliance requirements. MD Fanny Siddiqui MD 04/28/2023 9:54:21 AM This report has been signed electronically. Number of Addenda: 0 Note Initiated On: 04/28/2023 9:10 AM
[2023-04-28 09:55] VITALS: BP 106/69; BP 138/85; PULSE 67; PULSE 70; RESP 16; O2SAT 96; O2SAT 97
--- NOTE | 2023-04-28 09:55 | OP.CCLET_ITS ---
04/28/2023 Audi Louis MD [address] [place] [address] Re : Colonoscopy procedure for Em White Dear Dr. Louis This procedure was performed on Friday, April 28, 2023. My impressions and recommendations are as follows: Impressions : - One less than 5 mm polyp in the descending colon, removed with a cold biopsy forceps. Resected and retrieved. - The examination was otherwise normal on direct and retroflexion views. Recommendations : - Discharge patient to home. - Resume previous diet. - Await pathology results. - Repeat colonoscopy in 5 years for surveillance based on pathology results. - Continue present medications. My findings are described in the full procedure note, which is enclosed. If I can be of further assistance, please feel free to contact me at Doctor phone number(s): , Work: . Sincerely, MD Fanny Siddiqui MD 04/28/2023 9:54:21 AM This report has been signed electronically.
[2023-04-28 10:00] VITALS: BP 108/65; BP 138/85; PULSE 66; RESP 16; O2SAT 96
[2023-04-28 10:04] VITALS: BP 113/70; BP 138/85; PULSE 74; RESP 16; TEMP 36.9; O2SAT 98
[2023-04-28 10:13] VITALS: BP 138/85
== END 2023-04-28 10:28 | disposition home or self-care (01) ==
LOC: EN 07:46 → AC 07:47
PROVIDERS: PCP Family Medicine; Referring Provider Family Medicine; Visit Provider Surgery
PROC: 0DJD8ZZ Inspection of Lower Intestinal Tract, Via Natural or Artificial Opening Endoscopic (ICD-10-PCS; CPT 45378; principal; 2023-04-28 08:55)
DX: Z12.11 Encounter for screening for malignant neoplasm of colon (principal); D12.4 Benign neoplasm of descending colon; E78.00 Pure hypercholesterolemia, unspecified; I10 Essential (primary) hypertension; G47.33 Obstructive sleep apnea (adult) (pediatric); Z80.0 Family history of malignant neoplasm of digestive organs; Z79.899 Other long term (current) drug therapy; Z86.010 Personal history of colon polyps
CPT/HCPCS: 45380; 88305; J7120; J2405

== ENCOUNTER → 2023-09-21 | Outpatient (CLI) | payer OTHER, SELFPAY ==
--- NOTE | 2023-09-21 11:47 | RAD_ITS ---
STUDY: X-RAY - LEFT KNEE REASON FOR EXAM: Female, 53 years old. Pain. TECHNIQUE: 4 views of the left knee. COMPARISON: None. FINDINGS: Normal visualized distal femur. Normal visualized proximal tibia and fibula. Normal proximal tibiofibular articulation. There is no demonstrated fracture. Normal medial femorotibial compartment. Normal lateral femorotibial compartment. Normal patellofemoral articulation. The soft tissue structures are unremarkable. RAD/Knee 4 or More Views IMPRESSION: Normal x-ray examination of the left knee. Electronically Signed: Luiz Hernandez MD at 15:02 EDT ,
== END | disposition home or self-care (01) ==
LOC: MTRAD 11:46
PROVIDERS: PCP Family Medicine; Referring Provider Family Medicine; Visit Provider Family Medicine
DX: M25.562 Pain in left knee (principal)
CPT/HCPCS: 73564

== ENCOUNTER → 2024-03-29 | Outpatient (CLI) | payer OTHER, SELFPAY ==
--- NOTE | 2024-03-29 07:40 | EKG12_ITS ---
Test Reason : PALPITATIONS Blood Pressure : */* mmHG Vent. Rate : 72 BPM Atrial Rate : 72 BPM P-R Int : 162 ms QRS Dur : 92 ms QT Int : 414 ms P-R-T Axes : 47 12 31 degrees QTcB Int : 453 ms Normal sinus rhythm Normal ECG Confirmed by TITA CHEEK, FERNANDO ([id number]), photographic editor ALBERTA BURTON ([id number]) on 03/29/2024 12:53:46 PM Referred By: Ct Quinones Confirmed By: FERNANDO RIVERS MD
== END | disposition home or self-care (01) ==
LOC: PSN 07:39
PROVIDERS: PCP Family Medicine; Referring Provider Nurse Practitioner Family; Visit Provider Nurse Practitioner Family
DX: R00.2 Palpitations (principal)
CPT/HCPCS: 93005

== ENCOUNTER → 2024-05-29 | Outpatient (CLI) | payer OTHER, SELFPAY ==
--- NOTE | 2024-05-29 07:11 | BI_ITS ---
EXAM: SCRN MAMM (CAD)W/RALPH BILAT 05/29/2024 CLINICAL HISTORY: F, Age 53 y/o , SCREENING FOR BREAST CANCER TECHNIQUE: Bilateral screening digital breast tomosynthesis with 2D and 3D images. Computer aided detection. COMPARISON: Prior exam(s) dated 10/18/2022, 09/27/2021. FINDINGS: TISSUE DENSITY: The breast tissue is composed of scattered area of fibroglandular density. Bilateral Breast Mammographic Findings: No significant masses, calcifications or other abnormalities are identified. There are bilateral prepectoral silicone gel implants. BI/SCRN MAMM (CAD)W/RALPH BILAT IMPRESSION: Right Breast: BIRADS 1 NEGATIVE. Left Breast: BIRADS 1 NEGATIVE. OVERALL FINAL ASSESSMENT: BIRADS 1 NEGATIVE. RECOMMENDATION: Routine annual follow-up in 1 Year A letter with findings and recommendations will be mailed to the patient. Reading Location: [id number]
== END | disposition home or self-care (01) ==
LOC: OPBI 07:10
PROVIDERS: PCP Family Medicine; Referring Provider Nurse Practitioner Family; Visit Provider Nurse Practitioner Family
DX: Z12.31 Encounter for screening mammogram for malignant neoplasm of breast (principal)
CPT/HCPCS: 77063; 77067

== ENCOUNTER → 2024-06-13 | Outpatient (CLI) | payer OTHER, SELFPAY | END | disposition home or self-care (01) | PROVIDERS: PCP Family Medicine; Referring Provider Nurse Practitioner Family; Visit Provider Nurse Practitioner Family | DX: E66.3 Overweight (principal); Z68.28 Body mass index [BMI] 28.0-28.9, adult | CPT/HCPCS: 36415; 80053; 80061 ==

== ENCOUNTER → 2024-07-11 | Outpatient (CLI) | payer OTHER, SELFPAY | END | disposition home or self-care (01) | LOC: LABSPEC 11:22 | PROVIDERS: PCP Family Medicine; Referring Provider Nurse Practitioner Family; Visit Provider Nurse Practitioner Family | DX: N89.8 Other specified noninflammatory disorders of vagina (principal) | CPT/HCPCS: 87070; 87205 ==

== ENCOUNTER → 2024-08-14 | Outpatient (CLI) | payer OTHER, SELFPAY ==
[2024-08-14 16:48] LABS: Hematocrit 42.2 % (37-47); Hemoglobin 14.3 g/dL (12.0-15.0); Immature Granulocytes Count 0.010 X10^3/uL (0.0-0.0); Mean Corp Hgb Conc 33.9 g/dL (32-36); Mean Corpuscular Volume 88.5 fL (81-99); Mean Platelet Vol. 10.3 fl (6.2-12.0); NRBC Flagged by Analyzer 0 % (0-5); Platelet Count 215 K/mm3 (150-450); RBC Distribution Width CV 13.1 % (11.6-14.6); RBC Distribution Width SD 42.3 fl (35.1-43.9); Red Blood Count 4.77 M/mm3 (4.2-5.4); White Blood Count 6.1 K/mm3 (4.4-11.0)
[2024-08-14 17:18] LABS: AST(SGOT) 20 U/L (<=31); Alanine Aminotransfer ALT/SGPT 16 U/L (<=34); Albumin, Serum 4.3 g/dL (3.5-5.0); Alkaline Phosphatase 72 U/L (35-104); Anion Gap 10 (5-15); BUN 13 mg/dL (4-19); BUN/Creat Ratio 19.1 RATIO (10-20); Calcium,Total 9.1 mg/dL (7.6-11.0); Carbon Dioxide 23.5 mmol/L (21.0-32.0); Chloride 105 mmol/L (98-108); Cholesterol 208 mg/dL (<=200); Globulin 2.9 g/dL (2.2-4.2); Glucose 120 mg/dL (70-99); Low Density Lipoprotein Calc. 151 mg/dL; Potassium 3.8 mmol/L (3.3-5.1); Triglycerides 105 mg/dL; Very Low Density Lipoprotein 21 mg/dL (5-40); cholesterol:hdl ratio screen 5.71
== END | disposition home or self-care (01) ==
LOC: VSLAB 15:39
PROVIDERS: PCP Nurse Practitioner Family; Visit Provider Nurse Practitioner Family
DX: E66.9 Obesity, unspecified (principal); R73.9 Hyperglycemia, unspecified
CPT/HCPCS: 36415; 80053; 80061; 83036; 85025